=== PATIENT | female | born 1955 | race Caucasian/White ===

== ENCOUNTER → 2016-09-10 | Day surgery (SDC) | payer OTHER ==
[~2016-09-10] MED LIST: ALLERGY10 M1 PO; ASPIRIN EC81 M1 PO; ATORVASTATIN CA10 MG PO; DILTIAZEM ER60 MG PO; GLUCOTROL PO; LISINOPRIL5 MG PO; METFORMIN HCL500 M1 PO
--- NOTE | ~2016-09-10 | OR ---
Unit #: [id number] #: [id number] Patient: GARRET CHASE [id number] [facility] [address] [facility]. [place], [place] [address] [id number] O MR#: [id number] NAME: GARRET CHASE. ROOM: Date of Procedure: 09/10/2016 Admission Date: 09/10/2016 Surgeon: Alon Zacarias M.D. : 1955 Attending Physician: Alon Zacarias M.D. Primary Care Physician: Albin Walker M.D. OPERATIVE REPORT PRIMARY CARE PHYSICIAN Albin Walker M.D. PREOPERATIVE DIAGNOSIS Colorectal cancer screening. POSTOPERATIVE DIAGNOSIS Normal colon and rectum. PROCEDURE PERFORMED Colonoscopy to cecum. ANESTHESIA Monitored anesthesia. INDICATIONS FOR PROCEDURE A 61-year-old female sent for initial colorectal cancer screening. DESCRIPTION OF PROCEDURE The patient was admitted to [facility], positively identified, transported to endoscopy unit and after appropriate monitoring and positioning, she was sedated by the nurse patient relations representative. On rectal examination, there was no local anorectal pathology and digital examination was normal. Colonoscope was passed through the anal verge throughout the extent of the colon to the cecum, where the appendiceal orifice and ileocecal valve were photodocumented. On careful antegrade and retrograde visualization, no abnormalities were noted throughout the colon and rectum. The patient tolerated the procedure well and transported to recovery in stable condition. Findings were discussed with her sister. At this time, we would recommend a routine surveillance colonoscopy for colorectal cancer screening in 10 years. Dictated by... Narendra Clarke/luis fernando TD: 09/10/2016 21:31 JOB #: [id number] Unit #: [id number] #: [id number] Patient: GARRET CHASE OPERATIVE REPORT X Alon Zacarias MD X PROCEDURE OPERATIVE NOTE
--- NOTE | ~2016-09-10 | HP ---
Unit #: [id number] #: [id number] Patient: GARRET CHASE [id number] [address] [place], [place] [address] [id number] O MR#: [id number] NAME: GARRET CHASE ROOM: Age: 61 Sex: F Admission Date: 09/10/2016 : 1955 Attending Physician: Alon Zacarias M.D. Primary Care Physician: Albin Walker M.D. HISTORY AND PHYSICAL HISTORY AND EXAM Ms. Chase is a 60-year-old female sent for initial colorectal screening for colon cancer. She is otherwise asymptomatic and has no family history of colorectal disease. PAST MEDICAL HISTORY 1. Diabetes. 2. Hypertension. 3. Hypercholesterolemia. PAST SURGICAL HISTORY 1. She has had back surgery in the past. 2. Has had a cholecystectomy. ALLERGIES Allergic to penicillin. MEDICATIONS Include: 1. Atorvastatin. 2. Glipizide. 3. Diltiazem. 4. Metformin. 5. Lisinopril. Immunizations are unknown. FAMILY HISTORY Diabetes, heart disease, muscular dystrophy. SOCIAL HISTORY Single, no children. Denies use of alcohol or tobacco. REVIEW OF SYSTEMS Unremarkable. PHYSICAL EXAMINATION GENERAL: On exam, she is 5'5", 207 pounds. Awake, alert and oriented. VITAL SIGNS: Blood pressure is 142/90, heart rate 90, respirations 18, temperature 97. HEENT: Unremarkable. CARDIAC EXAM: Regular rate and rhythm. LUNGS: Clear. ABDOMEN: Soft. Unit #: [id number] #: [id number] Patient: GARRET CHASE EXTREMITIES: No edema. NEUROLOGICAL: Grossly intact. ASSESSMENT AND PLAN 60-year-old female sent for initial colorectal cancer screening. We discussed the procedure including risks, benefits, complications and bowel prep. She understands and agrees to proceed. Dictated by Alon Zacarias M.D. MARYAM/diana TD: 09/10/2016 08:04 JOB #: [id number] HISTORY AND PHYSICAL X Alon Zacarias MD X HISTORY AND PHYSICAL
== END | disposition home or self-care (01) ==
LOC: COPS 05:31
DX: Z12.11 Encounter for screening for malignant neoplasm of colon (principal); E11.9 Type 2 diabetes mellitus without complications; I10 Essential (primary) hypertension; E78.00 Pure hypercholesterolemia, unspecified; Z83.3 Family history of diabetes mellitus; Z82.49 Family history of ischemic heart disease and other diseases of the circulatory system; Z88.0 Allergy status to penicillin; Z79.899 Other long term (current) drug therapy
CPT/HCPCS: 82947; J2250